=== PATIENT | female | born 1965 | race Caucasian/White ===

== ENCOUNTER 2016-08-01 08:00 | Outpatient (CLI) | payer OTHER | END 2016-08-01 23:59 | disposition home or self-care (01) | DX: R11.0 Nausea (principal); R19.7 Diarrhea, unspecified ==

== ENCOUNTER 2016-11-05 15:11 | Outpatient (CLI) | payer OTHER ==
[2016-11-05 16:49] LABS: BILIRUBIN,URINE NEGATIVE (NEGATIVE); PH,URINE 7.5 PH (5.0-7.5)
[2016-11-05 16:52] LABS: BASOPHILS % (AUTO) 0.2 %; EOSINOPHILS # (AUTO) 0.1 10^3/uL (0.0-0.7); EOSINOPHILS % (AUTO) 2.1 %; HCT - HEMATOCRIT 37.7 % (37.0-47.0); HGB - HEMOGLOBIN 12.5 g/dL (12.0-16.0); LYMPHOCYTES # (AUTO) 1.5 10^3/uL (1.5-3.5); LYMPHOCYTES % (AUTO) 26.8 %; MEAN CORPUSCULAR HEMOGLOBIN 36.5 pg (27.0-31.0); MEAN CORPUSCULAR HGB CONC 33.2 g/dL (32.0-36.0); MEAN CORPUSCULAR VOLUME 109.8 fL (81.0-99.0); MEAN PLATELET VOLUME 7.7 fL (7.9-10.8); MONOCYTES # (AUTO) 0.5 10^3/uL (0.0-1.0); MONOCYTES % (AUTO) 8.4 %; NEUTROPHILS # (AUTO) 3.5 10^3/uL (1.5-6.6); NEUTROPHILS % (AUTO) 62.5 %; NUCLEATED RED BLOOD CELLS AUTO 0.1 /100WBC; RED BLOOD COUNT 3.43 10^6/uL (4.20-5.40); RED CELL DISTRIBUTION WIDTH 16.3 % (12.0-15.0); UNCORRECTED WHITE BLOOD COUNT 5.6 x10^3/uL; WHITE BLOOD COUNT 5.6 x10^3/uL (4.8-10.8)
[2016-11-05 16:53] LABS: UA CHARGE (STRIP ONLY) YES; UR CULTURE IF IND NOT INDICATED
[2016-11-05 16:57] LABS: ALBUMIN/GLOBULIN RATIO 1.2 (1.0-2.2); BILIRUBIN,TOTAL 0.7 mg/dL (0.2-1.0); CALCIUM 9.3 mg/dL (8.5-10.3); CREATININE 0.8 mg/dL (0.4-1.0); MAGNESIUM 2.1 mg/dL (1.7-2.8); POTASSIUM 4.3 mmol/L (3.5-5.0); TOTAL PROTEIN 7.4 g/dL (6.7-8.2)
[2016-11-06 10:30] LABS: IMMATURE RETIC FRACTION 0.5; RED BLOOD COUNT 3.32 10^6/uL (4.20-5.40)
[2016-11-06 10:58] LABS: FERRITIN 156.5 ng/mL (11.0-306.8)
== END 2016-11-05 23:59 | disposition home or self-care (01) ==
LOC: LAB.R 15:11
PROVIDERS: ATTEND Physician Assistant Medical
DX: R25.2 Cramp and spasm (principal); D75.89 Other specified diseases of blood and blood-forming organs
CPT/HCPCS: 80053; 81001; 81003; 82607; 82728; 83010; 83735; 85025; 85044; 86880; 87086

== ENCOUNTER 2017-01-02 14:17 | Outpatient (CLI) | payer OTHER | END 2017-01-02 14:18 | disposition home or self-care (01) | LOC: LAB 14:17 | PROVIDERS: ATTEND Physician Assistant Medical | DX: E53.8 Deficiency of other specified B group vitamins (principal) | CPT/HCPCS: 36415; 82607 ==

== ENCOUNTER 2017-01-29 14:24 | Outpatient (CLI) | payer OTHER | END 2017-01-29 14:25 | disposition home or self-care (01) | LOC: LAB.R 14:24 | PROVIDERS: ATTEND Internal Medicine | DX: E53.8 Deficiency of other specified B group vitamins (principal) | CPT/HCPCS: 82607 ==

== ENCOUNTER 2017-04-02 14:15 | Outpatient (CLI) | payer OTHER | END 2017-04-02 14:16 | disposition home or self-care (01) | LOC: LAB.R 14:15 | PROVIDERS: ATTEND Physician Assistant Medical | DX: E53.8 Deficiency of other specified B group vitamins (principal) | CPT/HCPCS: 82607 ==

== ENCOUNTER 2017-06-02 08:00 | Outpatient (CLI) | payer OTHER | END 2017-06-02 08:01 | disposition home or self-care (01) | LOC: LAB.R 08:00 | PROVIDERS: ATTEND Physician Assistant Medical | DX: Z79.899 Other long term (current) drug therapy (principal); E53.8 Deficiency of other specified B group vitamins | CPT/HCPCS: 82607 ==

== ENCOUNTER 2017-10-22 06:29 | Outpatient (CLI) | payer OTHER ==
[2017-10-22 06:53] LABS: BASOPHILS % (AUTO) 0.8 %; EOSINOPHILS # (AUTO) 0.1 10^3/uL (0.0-0.7); EOSINOPHILS % (AUTO) 2.2 %; HGB - HEMOGLOBIN 13.7 g/dL (12.0-16.0); LYMPHOCYTES # (AUTO) 1.1 10^3/uL (1.5-3.5); MEAN CORPUSCULAR HEMOGLOBIN 29.7 pg (27.0-31.0); MEAN CORPUSCULAR HGB CONC 32.7 g/dL (32.0-36.0); MEAN CORPUSCULAR VOLUME 90.9 fL (81.0-99.0); MEAN PLATELET VOLUME 7.8 fL (7.9-10.8); MONOCYTES # (AUTO) 0.4 10^3/uL (0.0-1.0); MONOCYTES % (AUTO) 7.4 %; NEUTROPHILS # (AUTO) 3.7 10^3/uL (1.5-6.6); NEUTROPHILS % (AUTO) 68.6 %; PLT - PLATELET COUNT 274 10^3/uL (130-450); RED BLOOD COUNT 4.63 10^6/uL (4.20-5.40); RED CELL DISTRIBUTION WIDTH 14.1 % (12.0-15.0); WHITE BLOOD COUNT 5.4 x10^3/uL (4.8-10.8)
[2017-10-22 07:10] LABS: ALBUMIN 4.2 g/dL (3.2-5.5); ALBUMIN/GLOBULIN RATIO 1.2 (1.0-2.2); ALKALINE PHOSPHATASE 59 IU/L (42-121); ALT ALANINE AMINOTRANSFERASE 15 IU/L (10-60); AST ASPARTATE AMINOTRANSFERASE 20 IU/L (10-42); BILIRUBIN,TOTAL 0.7 mg/dL (0.2-1.0); BUN - BLOOD UREA NITROGEN 19 mg/dL (6-20); CALCIUM 9.2 mg/dL (8.5-10.3); CARBON DIOXIDE - CO2 24 mmol/L (21-32); CHLORIDE 104 mmol/L (101-111); CHOL/HDL RATIO 3.1 (<4.4); CHOLESTEROL 128 mg/dL; CREATININE 0.8 mg/dL (0.4-1.0); GFR - MDRD 75 (>89); GLUCOSE 92 mg/dL (70-100); HDL CHOLESTEROL 41 mg/dL; LDL CHOLESTEROL,CALCULATED 74 mg/dL; LDL/HDL RATIO 1.8 (<4.4); SODIUM 138 mmol/L (135-145); TOTAL PROTEIN 7.6 g/dL (6.7-8.2); VLDL CHOLESTEROL 13 mg/dL
[2017-10-22 07:47] LABS: THYROID STIMULATING HORMONE 4.37 uIU/mL (0.34-5.60)
[2017-10-23 11:16] LABS: HEPATITIS C ANTIBODY NON-REACTIVE (NON-REACTIVE)
== END 2017-10-22 06:30 | disposition home or self-care (01) ==
LOC: LAB 06:29
PROVIDERS: ATTEND Physician Assistant Medical
DX: Z00.00 Encounter for general adult medical examination without abnormal findings (principal); Z79.899 Other long term (current) drug therapy; E53.8 Deficiency of other specified B group vitamins; Z72.89 Other problems related to lifestyle
CPT/HCPCS: 36415; 80053; 80061; 82607; 83721; 84443; 85025; 86803

== ENCOUNTER 2017-10-28 14:20 | Outpatient (CLI) | payer OTHER | END 2017-10-28 14:21 | disposition home or self-care (01) | LOC: LAB 14:20 | PROVIDERS: ATTEND Obstetrics & Gynecology | DX: N95.1 Menopausal and female climacteric states (principal) | CPT/HCPCS: 36415; 83001 ==

== ENCOUNTER 2018-01-26 14:35 | Outpatient (CLI) | payer OTHER | END 2018-01-26 14:36 | disposition home or self-care (01) | LOC: LAB.R 14:35 | PROVIDERS: ATTEND Physician Assistant Medical | DX: E53.8 Deficiency of other specified B group vitamins (principal); Z79.899 Other long term (current) drug therapy | CPT/HCPCS: 82607 ==

== ENCOUNTER 2018-02-27 15:08 | Outpatient (CLI) | payer OTHER ==
--- NOTE | 2018-02-27 15:39 | XRAY Report ---
Reason: HIP JOINT PAIN,LEFT Procedure Date: 02/27/2018 Accession Number: [id number] / [id number] Procedure: XR - Hips 2V BILAT CPT Code: FULL RESULT: EXAM: BILATERAL HIP RADIOGRAPHY EXAM DATE: 02/27/2018 03:25 PM. CLINICAL HISTORY: HIP JOINT PAIN,LEFT. COMPARISON: None. TECHNIQUE: 2 views each. FINDINGS: Bones: No fractures or bone lesion. Right Hip: No dislocation. The hip joint space is preserved. Left Hip: No dislocation. The hip joint space is preserved. Soft Tissues: No soft tissue swelling. IMPRESSION: Negative bilateral hip radiography. [facility]
== END 2018-02-27 15:09 | disposition home or self-care (01) ==
LOC: DI 15:08
PROVIDERS: ATTEND Physician Assistant Medical
DX: M25.552 Pain in left hip (principal)
CPT/HCPCS: 73521

== ENCOUNTER 2018-04-29 08:25 | Outpatient (CLI) | payer OTHER ==
[2018-04-29 09:19] LABS: FERRITIN 213.8 ng/mL (11.0-306.8)
== END 2018-04-29 08:26 | disposition home or self-care (01) ==
LOC: LAB 08:25
PROVIDERS: ATTEND Physician Assistant Medical
DX: E53.8 Deficiency of other specified B group vitamins (principal); Z79.899 Other long term (current) drug therapy
CPT/HCPCS: 36415; 82607; 82728

== ENCOUNTER 2018-07-20 09:30 | Outpatient (CLI) | payer BC | END 2018-07-20 09:31 | disposition home or self-care (01) | LOC: LAB 09:30 | PROVIDERS: ATTEND Physician Assistant Medical | DX: E53.8 Deficiency of other specified B group vitamins (principal) | CPT/HCPCS: 36415; 82607 ==

== ENCOUNTER 2018-07-21 08:00 | Outpatient (CLI) | payer BC ==
[2018-07-21 17:02] LABS: THYROID STIMULATING HORMONE 2.68 uIU/mL (0.34-5.60)
[2018-07-21 17:08] LABS: FERRITIN 178.6 ng/mL (11.0-306.8)
== END 2018-07-21 23:59 | disposition home or self-care (01) ==
LOC: LAB.R 08:00
PROVIDERS: ATTEND Physician Assistant Medical
DX: L65.9 Nonscarring hair loss, unspecified (principal)
CPT/HCPCS: 82728; 83540; 84443

== ENCOUNTER 2019-09-02 14:14 | Outpatient (CLI) | payer BC ==
--- NOTE | 2019-09-03 09:11 | XRAY Report ---
Reason: PAINFUL 1ST MT L FOOT Procedure Date: 09/02/2019 Accession Number: [id number] / [id number] Procedure: XR - Foot 3 View LT CPT Code: Final Report FULL RESULT: EXAM: LEFT FOOT RADIOGRAPHY EXAM DATE: 09/02/2019 02:32 PM. CLINICAL HISTORY: Painful first metatarsal left foot. COMPARISON: None. TECHNIQUE: 3 views. FINDINGS: Bones: No hallux valgus or metatarsus adductus. Minimal narrowing of the first metatarsal phalangeal articulation, without significant osteophytic spurring. The articulations of the foot elsewhere appear within normal limits. There is 8 mm of spurring at the plantar calcaneus, and there is minimal spurring at the dorsum of the calcaneus. There is mild osteophytic spurring at the dorsum of the articulation of the medial cuneiform and the base of the first metatarsal. Soft Tissues: Normal. No soft tissue swelling. IMPRESSION: Minimal to mild degenerative changes involving the first metatarsal. No significant osteophytic spurring of the midfoot or forefoot. Spurring at the calcaneus. [facility]
== END 2019-09-02 14:15 | disposition home or self-care (01) ==
LOC: DI 14:14
PROVIDERS: ATTEND Podiatrist
DX: M19.072 Primary osteoarthritis, left ankle and foot (principal); M77.32 Calcaneal spur, left foot

== ENCOUNTER 2019-09-08 14:19 | Outpatient (CLI) | payer BC | END 2019-09-08 14:20 | disposition home or self-care (01) | LOC: DI 14:19 | PROVIDERS: ATTEND Physician Assistant Medical | DX: R60.0 Localized edema (principal) | CPT/HCPCS: 93306 ==